=== PATIENT | female | born 1935 | race Caucasian/White ===

== ENCOUNTER → 2017-06-02 | Emergency (ER) | payer OTHER ==
[~2017-06-02] VITALS: Ht 152.4 cm; Wt 86.2 kg
[~2017-06-02] MED LIST: ACTOS30 MG; COUMADIN4 MG; LANTUS SOLOSTAR3 ML ID; LISINOPRIL20 MG; VALIUM; VERAPAMIL ER120 MG
== END | disposition left against medical advice (07) ==
LOC: ER 12:01
DX: J11.1 Influenza due to unidentified influenza virus with other respiratory manifestations (principal); R10.31 Right lower quadrant pain

== ENCOUNTER 2022-12-11 15:40 | Emergency (ER) | payer OTHER ==
[~2022-12-11] VITALS: Ht 157.5 cm; Wt 86.2 kg
[2022-12-11] MEDS ORDERED: JANUVIA100 MG PO (16:03)
[2022-12-11] MEDS ORDERED: MACROBID 100 M100 MG PO (17:59)
[2022-12-11] MEDS ORDERED: DOLOGESIC 500-1 EACH PO (17:59)
== END 2022-12-11 18:07 | disposition home or self-care (01) ==
LOC: ER 15:40
DX: N39.0 Urinary tract infection, site not specified (principal); E11.9 Type 2 diabetes mellitus without complications; Z79.84 Long term (current) use of oral hypoglycemic drugs; I10 Essential (primary) hypertension; Z88.0 Allergy status to penicillin; Z88.8 Allergy status to other drugs, medicaments and biological substances

== ENCOUNTER 2022-12-19 10:41 | Emergency (ER) | payer OTHER ==
[~2022-12-19] VITALS: Ht 157.5 cm; Wt 84.8 kg
[~2022-12-19 10:41] MED LIST changes: +DOLOGESIC 500-1 EACH PO; +JANUVIA100 MG PO; +MACROBID 100 M100 MG PO
[2022-12-19] MEDS ORDERED: DICY20TA PO (17:08)
[2022-12-19] MEDS ORDERED: PEPCID AC20 MG PO (17:08)
[2022-12-19] MEDS ORDERED: INTESTINEX680 M1 PO (17:08)
== END 2022-12-19 17:21 | disposition home or self-care (01) ==
LOC: ER 10:41
DX: K29.00 Acute gastritis without bleeding (principal); K80.20 Calculus of gallbladder without cholecystitis without obstruction; K57.32 Diverticulitis of large intestine without perforation or abscess without bleeding; Z88.0 Allergy status to penicillin; Z88.8 Allergy status to other drugs, medicaments and biological substances; I10 Essential (primary) hypertension